=== PATIENT | female | born 1950 | race Caucasian/White ===

== ENCOUNTER 2021-06-17 17:41 | Inpatient (IN) | payer MEDICARE, OTHER ==
--- NOTE | 2021-06-17 19:23 | ED ---
SOB HPI - General Chief Complaint: Shortness of Breath Stated Complaint: Respiratory distress Time Seen by Provider: 06/17/21 19:22 Source: patient, RN notes reviewed Mode of arrival: ambulatory Limitations: no limitations - History of Present Illness Initial Comments: Patient presents with cough, congestion, shortness of breath for one week.Shaylee moore has a history of COPD and has been treated as an outpatient for COPD exacerbation with corticosteroids. Patient did not get better after a course of prednisone. Patient's also been on Augmentin for 8 days. Patient ended up going to her regular physician and had a intramuscular injection of cortical steroids as well. Patient presents today with persistent shortness of breath. COVID-19 testing and influenza testing was done in triage and is actually negative. The patient has not vaccinated against COVID-19. No headache, no fever or chills, no changes in vision or hearing, no sore throat or difficulty with speech, no neck pain, no chest pain, no abdominal pain, no nausea or vomiting, no changes in urination or bowel movements, no numbness or tingling, no extremity pain, no skin rashes or lesions. Positive for body aches and cough MD Complaint: shortness of breath, cough - Related Data Allergies Allergy/AdvReac Type Severity Reaction Status Date / Time clindamycin Allergy Rash/Hives Verified 06/17/21 19:02 diphenhydramine Allergy Rash/Hives Verified 06/17/21 19:02 [From Benadryl] Iodinated Contrast Media Allergy Rash/Hives Verified 06/17/21 19:02 levofloxacin [From Levaquin] Allergy Rash/Hives Verified 06/17/21 19:02 Review of Systems ROS Statement: Those systems with pertinent positive or pertinent negative responses have been documented in the HPI. ROS Other: All systems not noted in ROS Statement are negative. Past Medical History Past Medical History: COPD History of Any Multi-Drug Resistant Organisms: None Reported Past Surgical History: No Surgical Hx Reported Past Psychological History: No Psychological Hx Reported Smoking Status: Current every day smoker Past Alcohol Use History: None Reported Past Drug Use History: None Reported General Exam - General Exam Comments Initial Comments: 71-year-old female in moderate distress. Limitations: no limitations General appearance: alert, in no apparent distress Head exam: Present: atraumatic, normocephalic, normal inspection Eye exam: Present: normal appearance, PERRL, EOMI. Absent: scleral icterus, conjunctival injection, periorbital swelling ENT exam: Present: normal exam, mucous membranes moist Neck exam: Present: normal inspection. Absent: tenderness, meningismus, lymphadenopathy Respiratory exam: Present: wheezes, accessory muscle use, other (Mild increased work of breathing with pursed lip breathing and increases Essary muscle use). Absent: normal lung sounds bilaterally, respiratory distress, rales, rhonchi, stridor Cardiovascular Exam: Present: regular rate, normal rhythm, normal heart sounds. Absent: systolic murmur, diastolic murmur, rubs, gallop, clicks GI/Abdominal exam: Present: soft, normal bowel sounds. Absent: distended, tenderness, guarding, rebound, rigid Extremities exam: Present: normal inspection, full ROM, normal capillary refill. Absent: tenderness, pedal edema, joint swelling, calf tenderness Back exam: Present: normal inspection Neurological exam: Present: alert, oriented X3, CN II-XII intact Psychiatric exam: Present: normal affect, normal mood Skin exam: Present: warm, dry, intact, normal color. Absent: rash Course Vital Signs 06/17/21 18:55 Temperature 97.2 F L Pulse Rate 79 Respiratory 19 Rate Blood Pressure 138/85 O2 Sat by Pulse 94 L Oximetry Medical Decision Making - Medical Decision Making Patient presents with outpatient failure for COPD exacerbation. Note that the patient has been on corticosteroids and has an elevated white count which is suspected. Patient has expiratory wheezing on physical examination. DuoNeb is ordered. Patient will need to be admitted for outpatient failure, COPD exacerbation 19 influenza testing is negative. The case was discussed in detail with ED attending physician. Presentation, findings, treatment plan discussed in detail. Patient will be admitted to Dr. Bautista for COPD exacerbation/outpatient failure. Consultation for pulmonary medicine will be placed. Case discussed in detail with the internal medicine physician, Dr. Bautista - Lab Data Result diagrams: 06/17/21 20:26 06/17/21 20: Lab Results 06/17/21 06/17/21 06/17/21 Range/Units 19:09 20:26 20:26 WBC 13.5 H (3.8-10.6) k/uL RBC 5.05 (3.80-5.40) m/uL Hgb 15.7 (11.4-16.0) gm/dL Hct 47.2 H (34.0-46.0) % MCV 93.4 (80.0-100.0) fL MCH 31.1 (25.0-35.0) pg MCHC 33.2 (31.0-37.0) g/dL RDW 13.5 (11.5-15.5) % Plt Count 289 (150-450) k/uL MPV 8.3 Neutrophils % 61 % Lymphocytes % 29 % Monocytes % 6 % Eosinophils % 2 % Basophils % 0 % Neutrophils # 8.2 H (1.3-7.7) k/uL Lymphocytes # 4.0 (1.0-4.8) k/uL Monocytes # 0.8 (0-1.0) k/uL Eosinophils # 0.3 (0-0.7) k/uL Basophils # 0.1 (0-0.2) k/uL Sodium 134 L (137-145) mmol/L Potassium 4.3 (3.5-5.1) mmol/L Chloride 98 (98-107) mmol/L Carbon Dioxide 27 (22-30) mmol/L Anion Gap 9 mmol/L BUN 19 H (7-17) mg/dL Creatinine 0.66 (0.52-1.04) mg/dL Est GFR (CKD-EPI)AfAm >90 (>60 ml/min/1.73 sqM) Est GFR (CKD-EPI)NonAf >90 (>60 ml/min/1.73 sqM) Glucose 114 H (74-99) mg/dL Calcium 10.5 H (8.4-10.2) mg/dL Magnesium 2.2 (1.6-2.3) mg/dL Total Bilirubin 0.6 (0.2-1.3) mg/dL AST 21 (14-36) U/L ALT 27 (4-34) U/L Alkaline Phosphatase 97 (38-126) U/L Troponin I (0.000-0.034) ng/mL NT-Pro-B Natriuret Pep pg/mL Total Protein 6.3 (6.3-8.2) g/dL Albumin 3.8 (3.5-5.0) g/dL Coronavirus (PCR) Not Detected (Not Detectd) Influenza Type A RNA (Not Detectd) Influenza Type B (PCR) (Not Detectd) 06/17/21 06/17/21 06/17/21 Range/Units 20:26 20:26 20:28 WBC (3.8-10.6) k/uL RBC (3.80-5.40) m/uL Hgb (11.4-16.0) gm/dL Hct (34.0-46.0) % MCV (80.0-100.0) fL MCH (25.0-35.0) pg MCHC (31.0-37.0) g/dL RDW (11.5-15.5) % Plt Count (150-450) k/uL MPV Neutrophils % % Lymphocytes % % Monocytes % % Eosinophils % % Basophils % % Neutrophils # (1.3-7.7) k/uL Lymphocytes # (1.0-4.8) k/uL Monocytes # (0-1.0) k/uL Eosinophils # (0-0.7) k/uL Basophils # (0-0.2) k/uL Sodium (137-145) mmol/L Potassium (3.5-5.1) mmol/L Chloride (98-107) mmol/L Carbon Dioxide (22-30) mmol/L Anion Gap mmol/L BUN (7-17) mg/dL Creatinine (0.52-1.04) mg/dL Est GFR (CKD-EPI)AfAm (>60 ml/min/1.73 sqM) Est GFR (CKD-EPI)NonAf (>60 ml/min/1.73 sqM) Glucose (74-99) mg/dL Calcium (8.4-10.2) mg/dL Magnesium (1.6-2.3) mg/dL Total Bilirubin (0.2-1.3) mg/dL AST (14-36) U/L ALT (4-34) U/L Alkaline Phosphatase (38-126) U/L Troponin I <0.012 (0.000-0.034) ng/mL NT-Pro-B Natriuret Pep 101 pg/mL Total Protein (6.3-8.2) g/dL Albumin (3.5-5.0) g/dL Coronavirus (PCR) (Not Detectd) Influenza Type A RNA Not Detected (Not Detectd) Influenza Type B (PCR) Not Detected (Not Detectd) - EKG Data EKG Comments: EKG reveals normal sinus rhythm with a rate of 66. Left axis deviation. Pulmonary disease pattern. Are his R in lead V1 suggests right ventricular conduction delay. Poor R-wave progression noted. Intervals are normal. No comparison study. Reviewed by the ED attending physician. Disposition Clinical Impression: Edema of larynx, COPD with acute exacerbation, Asthma with acute exacerbation, Cigarette smoker Disposition: ADMITTED IP TO THIS HOSP Referrals: Benigno Cosby MD [Primary Care Provider] - 1-2 days
[2021-06-17 20:47] LABS: ALT 27 U/L (4-34); AST 21 U/L (14-36); African American GFR (CKD) >90 (>60 ml/min/1.73 sqM); Albumin 3.8 g/dL (3.5-5.0); Alkaline Phosphatase 97 U/L (38-126); Anion Gap 9 mmol/L; Blood Urea Nitrogen 19 mg/dL (7-17); Calcium 10.5 mg/dL (8.4-10.2); Carbon Dioxide 27 mmol/L (22-30); Chloride 98 mmol/L (98-107); Glucose 114 mg/dL (74-99); Magnesium 2.2 mg/dL (1.6-2.3); Non-African American GFR(CKD) >90 (>60 ml/min/1.73 sqM); Sodium 134 mmol/L (137-145); Total Bilirubin 0.6 mg/dL (0.2-1.3); Total Protein 6.3 g/dL (6.3-8.2)
[2021-06-17 20:56] LABS: Potassium 4.3 mmol/L (3.5-5.1)
[2021-06-17 21:03] LABS: Basophils # (A) 0.1 k/uL (0-0.2); Basophils % (A) 0 %; Eosinophils # (A) 0.3 k/uL (0-0.7); Eosinophils % (A) 2 %; HCT 47.2 % (34.0-46.0); HGB 15.7 gm/dL (11.4-16.0); Lymphocytes % (A) 29 %; MCH 31.1 pg (25.0-35.0); MCHC 33.2 g/dL (31.0-37.0); MCV 93.4 fL (80.0-100.0); Mean Platelet Volume 8.3; Monocytes # (A) 0.8 k/uL (0-1.0); Monocytes % (A) 6 %; Neutrophils # (A) 8.2 k/uL (1.3-7.7); Neutrophils % (A) 61 %; Platelet Count 289 k/uL (150-450); RBC 5.05 m/uL (3.80-5.40); RDW 13.5 % (11.5-15.5); WBC 13.5 k/uL (3.8-10.6)
[2021-06-17] MEDS ORDERED: IPRATROPIUM-ALBUTEROL 3 ML NEB INHALATION STA (21:24)
--- NOTE | 2021-06-17 21:39 | XR ---
EXAMINATION TYPE: XR chest 1V portable DATE OF EXAM: 06/17/2021 COMPARISON: NONE HISTORY: 71 years Female. STUDY INDICATION GIVEN: dyspnea . TECHNIQUE: AP chest radiograph IMPRESSION: Hyperinflated lungs with upper lobe predominant lucencies likely on the basis of COPD/emphysema. Few nodular-like densities measuring up to 6 mm in the bilateral perihilar region may be reflective o f calcified hilar lymph nodes. Minimal bibasilar linear opacities likely reflective of atelectasis. No definite focal airspace disea se, pneumothorax or effusion. The cardiac mediastinal silhouette is within normal limit. Degenerative changes and mild S-shaped scoliosis are seen in the spine. No acute fracture or dislocat ion. Atherosclerotic calcifications project in the intrathoracic aorta.
[2021-06-17] MEDS ORDERED: INSULIN ASPART (NovoLOG) 100 UNIT/ML VIAL SQ PRN (21:53)
[2021-06-17] MEDS: AZITHROMYCIN 500 MG TAB PO SCH (23:10)
[2021-06-17] MEDS: ENOXAPARIN 40 MG/0.4 ML SYRINGE SQ SCH (23:10)
[2021-06-18] MEDS: methylPREDNISolone SOD SUCCI 125 MG/2 ML VIAL IV SCH ×4 (00:14→17:48)
[2021-06-18 07:38] LABS: Glucose,Whole Blood 137 mg/dL (75-99)
[2021-06-18 07:54] LABS: Basophils % (A) 0 %; Eosinophils % (A) 0 %; HCT 49.1 % (34.0-46.0); HGB 15.9 gm/dL (11.4-16.0); Lymphocytes # (A) 1.6 k/uL (1.0-4.8); Lymphocytes % (A) 14 %; MCH 30.7 pg (25.0-35.0); MCHC 32.3 g/dL (31.0-37.0); MCV 94.8 fL (80.0-100.0); Mean Platelet Volume 7.9; Monocytes # (A) 0.1 k/uL (0-1.0); Monocytes % (A) 1 %; Neutrophils # (A) 9.5 k/uL (1.3-7.7); Neutrophils % (A) 84 %; Platelet Count 339 k/uL (150-450); RBC 5.18 m/uL (3.80-5.40); RDW 13.4 % (11.5-15.5); WBC 11.3 k/uL (3.8-10.6)
[2021-06-18] MEDS ORDERED: FLUTICASONE 110 MCG INHALER INHALATION SCH (08:00)
[2021-06-18] MEDS ORDERED: ALBUTEROL HFA INHALER INHALATION SCH (08:00)
[2021-06-18] MEDS ORDERED: TIOTROPIUM 2.5 MCG INHALER INHALATION SCH (08:00)
[2021-06-18 08:18] LABS: African American GFR (CKD) >90 (>60 ml/min/1.73 sqM); Anion Gap 8 mmol/L; Blood Urea Nitrogen 18 mg/dL (7-17); Calcium 9.9 mg/dL (8.4-10.2); Carbon Dioxide 27 mmol/L (22-30); Chloride 98 mmol/L (98-107); Glucose 141 mg/dL (74-99); Non-African American GFR(CKD) >90 (>60 ml/min/1.73 sqM); Potassium 4.7 mmol/L (3.5-5.1); Sodium 133 mmol/L (137-145)
[2021-06-18] MEDS: AZITHROMYCIN 500 MG TAB PO SCH (09:05)
[2021-06-18] MEDS: guaiFENesin 600 MG TABLET.ER PO SCH ×2 (09:05→20:00)
--- NOTE | 2021-06-18 11:28 | P.CNPUL ---
History of Present Illness Consult date: 06/18/21 History of present illness: 89-year-old female patient, who has been followed up in our office regarding her COPD. The patient takes Symbicort as maintenance and the patient has been taken albuterol nebulizer [id number] on an as needed basis. The patient has not been on oxygen at home. She quit smoking approximately 10 days ago. Prior to that, the patient was smoking around half pack of cigarettes a day and she has smoked cigarettes for many years. No previous hospitalization for COPD exacerbations. Her symptoms started approximately 10 days ago. She initially developed symptoms of URI and subsequently she had increased cough and congestion and chest tightness and wheezing. She was seen by her primary care physician and have an urgent care. She was given prednisone. She was given Augmentin. She was also given a Depo-Medrol shot. She continued to be symptomatic and she continued to have excessive cough and congestion and for that reason she ended up coming into the emergency department she was hospitalized for an acute COPD exacerbation. COVID 19 testing is been negative. Note that the patient has never been advised by her primary care physician not to take COVID 19 vaccination. The patient has no angina. No palpitation. No swelling lower extremity is. No altered mentation. She is tolerating her diet. She is currently on oxygen at 3 L per minute nasal cannula. Review of Systems Constitutional: Reports fatigue, Reports weakness Eyes: denies as per HPI, denies blurred vision, denies bulging eye, denies decreased vision, denies diplopia, denies discharge, denies dry eye, denies irritation, denies itching, denies pain, denies photophobia, denies loss of pe ripheral vision, denies loss of vision, denies tunnel vision/blind spots Ears: deny: decreased hearing, ear discharge, earache, tinnitus Ears, nose, mouth and throat: Reports as per HPI Breasts: absent: as per HPI, change in shape, gynecomastia, masses, nipple discharge, pain, skin changes, swelling Cardiovascular: Reports decreased exercise tolerance, Reports dyspnea on exertion Respiratory: Reports congestion, Reports cough, Reports cough with sputum, Reports dyspnea, Reports wheezing Gastrointestinal: Reports as per HPI Genitourinary: Reports as per HPI Menstruation: Reports as per HPI Musculoskeletal: Reports as per HPI Musculoskeletal: absent: ankle pain, ankle stiffness, ankle swelling, as per HPI, elbow pain, elbow stiffness, elbow swelling, foot pain, foot stiffness, foot swelling, hand pain, hand stiffness, hand swelling, hip pain, hip stiffness, hip swelling, knee pain, knee stiffness, knee swelling, shoulder pain, shoulder stiffness, shoulder swelling, wrist pain, wrist stiffness, wrist swelling Integumentary: Reports as per HPI Neurological: Reports as per HPI Psychiatric: Reports as per HPI Endocrine: Reports as per HPI, Reports fatigue Hematologic/Lymphatic: Reports as per HPI Allergic/Immunologic: Reports as per HPI Past Medical History Past Medical History: COPD History of Any Multi-Drug Resistant Organisms: None Reported Past Surgical History: No Surgical Hx Reported Past Anesthesia/Blood Transfusion Reactions: No Reported Reaction Past Psychological History: No Psychological Hx Reported Smoking Status: Current every day smoker Past Alcohol Use History: None Reported Past Drug Use History: None Reported Medications and Allergies Home Medications Medication Instructions Recorded Confirmed Type Albuterol Inhaler [Ventolin Hfa 2 puff INHALATION RT-Q6H PRN 06/17/21 06/17/21 History Inhaler] Albuterol Nebulized [Ventolin 2.5 mg INHALATION RT-QID PRN 06/17/21 06/17/21 History Nebulized] Amoxicillin/Potassium Clav 1 tab PO BID 06/17/21 06/17/21 History [Augmentin 875-125 Tablet] Budesonide/Formoterol Fumarate 2 puff INHALATION RT-BID 06/17/21 06/17/21 History [Symbicort 160-4.5 Mcg Inhaler] Cholecalciferol [Vitamin D3 (25 25 mcg PO DAILY 06/17/21 06/17/21 History Mcg = 1000 Iu)] Ipratropium Nebulized [Atrovent 0.5 mg INHALATION RT-QID PRN 06/17/21 06/17/21 History Nebulized 0.2 MG/ML] Montelukast [Singulair] 10 mg PO DAILY 06/17/21 06/17/21 History predniSONE [Deltasone] See Taper PO DIRECTED 06/17/21 06/17/21 History Allergies Allergy/AdvReac Type Severity Reaction Status Date / Time clindamycin Allergy Rash/Hives Verified 06/17/21 22:15 diphenhydramine Allergy Rash/Hives Verified 06/17/21 22:15 [From Benadryl] Iodinated Contrast Media Allergy Rash/Hives Verified 06/17/21 22:15 levofloxacin [From Levaquin] Allergy Rash/Hives Verified 06/17/21 22:15 Physical Exam Vitals: Vital Signs Temp Pulse Pulse Resp BP BP Pulse Ox 06/18/21 08:00 16 06/18/21 04:40 97.9 F 74 20 113/69 95 06/18/21 03:56 72 16 116/87 98 06/18/21 00:43 71 20 143/72 94 L 06/17/21 23:27 71 06/17/21 23:22 68 06/17/21 23:00 22 06/17/21 18:55 97.2 F L 79 19 138/85 94 L Intake and Output 06/17/21 06/18/21 06/18/21 22:59 06:59 14:59 Other: # Voids 1 Weight 48.988 kg 48.988 kg General appearance: alert, in no apparent distress Head exam: Present: atraumatic, normocephalic, normal inspection Eye exam: Present: normal appearance, PERRL, EOMI. Absent: scleral icterus, conjunctival injection, periorbital swelling ENT exam: Present: normal exam, mucous membranes moist Neck exam: Present: normal inspection. Absent: tenderness, meningismus, lymphadenopathy Respiratory exam: Present: wheezes, accessory muscle use, other (Mild increased work of breathing with pursed lip breathing and increases Essary muscle use). Absent: normal lung sounds bilaterally, respiratory distress, rales, rhonchi, stridor Cardiovascular Exam: Present: regular rate, normal rhythm, normal heart sounds. Absent: systolic murmur, diastolic murmur, rubs, gallop, clicks GI/Abdominal exam: Present: soft, normal bowel sounds. Absent: distended, te nderness, guarding, rebound, rigid Extremities exam: Present: normal inspection, full ROM, normal capillary refill. Absent: tenderness, pedal edema, joint swelling, calf tenderness Back exam: Present: normal inspection Neurological exam: Present: alert, oriented X3, CN II-XII intact Psychiatric exam: Present: normal affect, normal mood Skin exam: Present: warm, dry, intact, normal color. Absent: rash Results - Laboratory Findings CBC and BMP: 06/18/21 07:25 06/18/21 07:25 Abnormal lab findings: Abnormal Labs 06/17/21 06/17/21 06/18/21 20:26 20:26 07:25 WBC 13.5 H 11.3 H Hct 47.2 H 49.1 H Neutrophils # 8.2 H 9.5 H Sodium 134 L BUN 19 H Glucose 114 H POC Glucose (mg/dL) Calcium 10.5 H 06/18/21 06/18/21 07:25 07:36 WBC Hct Neutrophils # Sodium 133 L BUN 18 H Glucose 141 H POC Glucose (mg/dL) 137 H Calcium - Diagnostic Findings Chest x-ray: image reviewed Assessment and Plan Plan: 1 Acute COPD exacerbation symptoms started approximately 10 days ago and the patient has failed outpatient treatment. She is currently hospitalized for an acute COPD exacerbation and shortness of breath. Chest x-ray is free of any acute pulmonary infiltration. There is hyperinflation related to COPD. The p atient also has been tested negative for COVID 19. She is not vaccinated for COVID 19 2 shortness of breath secondary to above 3 acute hypoxic respiratory failure secondary to above. Her obesity Plan Supplement the patient on oxygen 2 L per minute nasal cannula. Cover The patient with DuoNeb nebulized treatments around the clock 4 times a day Cover The patient with a combination of Perforomist and Pulmicort neb last 2 minutes twice a day IV Solu-Medrol 60 mg every 6 hours Sputum Gram stain and culture Antibiotic coverage with Rocephin and Zithromax smoking cessation counseling was done will continue to follow.
[2021-06-18] MEDS: IPRATROPIUM-ALBUTEROL 3 ML NEB INHALATION SCH ×3 (11:29→21:24)
[2021-06-18 12:07] LABS: Glucose,Whole Blood 91 mg/dL (75-99)
[2021-06-18] MEDS: CHOLECALCIFEROL 25 MCG (1000 IU) TABLET PO SCH (12:24)
[2021-06-18] MEDS: MONTELUKAST 10 MG TAB PO SCH (12:24)
[2021-06-18 13:03] VITALS: BMI 16.4
--- NOTE | 2021-06-18 16:19 | P.HPIM ---
History of Present Illness H&P Date: 06/18/21 Chief Complaint: Short of breath This is a pleasant 71-year-old patient who follows with Dr. Cosby. Patient is long-standing smoker. About half a pack a day. Over 50 years. She noticed around [place] that is bleeding slightly getting worse. After the first of the year her symptoms became worse. She predominantly became more and more short of breath. Wheezing. Also developed a cough. Sometimes yellow sputum sometimes clear sputum. No fever no chills. Decreased appetite and rundown. Finding decided to come in. Patient does have inhalers at home. Review of systems: GEN.: Decreased appetite, tired EYES: None HEENT: None NECK: None RESPIRATORY: As above CARDIOVASCULAR: None GASTROINTESTINAL: GERD GENITOURINARY: None MUSCULOSKELETAL: None LYMPHATICS: None HEMATOLOGICAL: None PSYCHIATRY: None NEUROLOGICAL: None Past medical history to include: COPD, GERD Social history: Lives alone. Has averaged about half a pack a day for over 50 years. No alcoh ol. Family history: Reviewed, noncontributory to presentation Physical examination: VITAL SIGNS: 97.2, 79, 19, 1:30/85, 94% on room air of 1 presentation GENERAL: BMI 16.4, indicating bed, awake, tired. EYES: Pupils equal. Conjunctiva normal. HEENT: External appearance of nose and ears normal, oral cavity grossly normal. NECK: JVD not raised; masses not palpable. HEART: First and second heart sounds are normal; no edema. LUNGS: Respiratory rate increased; decreased breath sound, prolonged expiration. ABDOMEN: Soft, nontender, liver spleen not palpable, no masses palpable. PSYCH: Alert and oriented x3; mood and affect normal. MUSCULOSKELETAL:No Clubbing/cyanosis;muscles-grossly intact NEUROLOGICAL: Cranial nerves grossly intact; no facial asymmetry, power and sensation grossly intact. LYMPHATICS: No lymph nodes palpable in the axilla and neck INVESTIGATIONS, reviewed in the clinical context: White count 11.3 hemoglobin 15.9 platelets 339 sodium 133 potassium 4.7 BUN 18 creatinine 0.65 Troponin I less than 0.012 proBNP 101 albumin 3.8 Coronavirus/influenza type A/influenza type B: Not detected EKG tracing personally reviewed by me-normal sinus rhythm. P pulmonale. Rate 66 Chest x-ray film personally reviewed by me-hyperinflated. Tubular heart. Flat diaphragms. No obvious infiltrate. Prominent pulmonary artery Assessment and plan: -Acute severe COPD exacerbation in a current smoker Nebulized Pulmicort, nebulized Perforomist, DuoNeb 4 times a day, IV Solu-Medrol -Moderate protein calorie malnutrition. BMI 16.4 Ensure supplement. Consult dietitian -Chronic nicotine dependence, cigarette smoker Nicotine patch 14 -Mild hyponatremia from decreased oral intake Encourage oral intake -GERD Pepcid 20 mg twice a day -Acute bronchitis IV ceftriaxone/Zithromax. -Suspect underlying secondary pulmonary hypertension 2-D echocardiogram DuoNeb, nebulized Perforomist, Pulmicort, antibiotics. Pepcid. Subcu Lovenox. Nicotine patch. Care was discussed with the patient. Questions answered. Dietitian consult. Ensure. Smoke cessation counseling: This was done with the patient. Nicotine patch is being given. More than 3 minutes was spent for this Past Medical History Past Medical History: COPD History of Any Multi-Drug Resistant Organisms: None Reported Past Surgical History: No Surgical Hx Reported Past Anesthesia/Blood Transfusion Reactions: No Reported Reaction Past Psychological History: No Psychological Hx Reported Smoking Status: Current every day smoker Past Alcohol Use History: None Reported Past Drug Use History: None Reported Medications and Allergies Home Medications Medication Instructions Recorded Confirmed Type Albuterol Inhaler [Ventolin Hfa 2 puff INHALATION RT-Q6H PRN 06/17/21 06/17/21 History Inhaler] Albuterol Nebulized [Ventolin 2.5 mg INHALATION RT-QID PRN 06/17/21 06/17/21 History Nebulized] Amoxicillin/Potassium Clav 1 tab PO BID 06/17/21 06/17/21 History [Augmentin 875-125 Tablet] Budesonide/Formoterol Fumarate 2 puff INHALATION RT-BID 06/17/21 06/17/21 History [Symbicort 160-4.5 Mcg Inhaler] Cholecalciferol [Vitamin D3 (25 25 mcg PO DAILY 06/17/21 06/17/21 History Mcg = 1000 Iu)] Ipratropium Nebulized [Atrovent 0.5 mg INHALATION RT-QID PRN 06/17/21 06/17/21 History Nebulized 0.2 MG/ML] Montelukast [Singulair] 10 mg PO DAILY 06/17/21 06/17/21 History predniSONE [Deltasone] See Taper PO DIRECTED 06/17/21 06/17/21 History Allergies Allergy/AdvReac Type Severity Reaction Status Date / Time clindamycin Allergy Rash/Hives Verified 06/17/21 22:15 diphenhydramine Allergy Rash/Hives Verified 06/17/21 22:15 [From Benadryl] Iodinated Contrast Media Allergy Rash/Hives Verified 06/17/21 22:15 levofloxacin [From Levaquin] Allergy Rash/Hives Verified 06/17/21 22:15 Physical Exam Vitals: Vital Signs Temp Pulse Pulse Resp BP BP Pulse Ox 06/18/21 13:56 98.1 F 82 114/68 96 06/18/21 11:38 78 06/18/21 11:32 76 06/18/21 08:00 16 06/18/21 04:40 97.9 F 74 20 113/69 95 06/18/21 03:56 72 16 116/87 98 06/18/21 00:43 71 20 143/72 94 L 06/17/21 23:27 71 06/17/21 23:22 68 06/17/21 23:00 22 06/17/21 18:55 97.2 F L 79 19 138/85 94 L Intake and Output 06/18/21 06/18/21 06/18/21 06:59 14:59 22:59 Other: # Voids 1 Weight 48.988 kg 48.988 kg Results CBC & Chem 7: 06/18/21 07:25 06/18/21 07:25 Labs: Abnormal Lab Results - Last 24 Hours (Table) 06/17/21 06/17/21 06/18/21 Range/Units 20:26 20:26 07:25 WBC 13.5 H 11.3 H (3.8-10.6) k/uL Hct 47.2 H 49.1 H (34.0-46.0) % Neutrophils # 8.2 H 9.5 H (1.3-7.7) k/uL Sodium 134 L (137-145) mmol/L BUN 19 H (7-17) mg/dL Glucose 114 H (74-99) mg/dL POC Glucose (mg/dL) (75-99) mg/dL Calcium 10.5 H (8.4-10.2) mg/dL 06/18/21 06/18/21 Range/Units 07:25 07:36 WBC (3.8-10.6) k/uL Hct (34.0-46.0) % Neutrophils # (1.3-7.7) k/uL Sodium 133 L (137-145) mmol/L BUN 18 H (7-17) mg/dL Glucose 141 H (74-99) mg/dL POC Glucose (mg/dL) 137 H (75-99) mg/dL Calcium (8.4-10.2) mg/dL Thrombosis Risk Factor Assmnt - Choose All That Apply Any of the Below Risk Factors Present?: Yes Each Factor Represents 1 point: Abnormal pulmonary function (COPD) Other Risk Factors: Yes Each Risk Factor Represents 2 Points: Age 61-74 years Other congenital or acquired thrombophilia - If yes, enter type in comment: No Thrombosis Risk Factor Assessment Total Risk Factor Score: 3 Thrombosis Risk Factor Assessment Level: Moderate Risk
[2021-06-18 16:39] LABS: Glucose,Whole Blood 135 mg/dL (75-99)
[2021-06-18] MEDS: NICOTINE 14MG/24HR PATCH TRANSDERM SCH (17:45)
[2021-06-18] MEDS: ENOXAPARIN 40 MG/0.4 ML SYRINGE SQ SCH (20:00)
[2021-06-18] MEDS: FAMOTIDINE 20 MG TAB PO SCH (20:00)
[2021-06-18] MEDS: BUDESONIDE 1 MG/2 ML NEBU INHALATION SCH (21:24)
[2021-06-18] MEDS: FORMOTEROL FUMARATE 20 MCG/2 ML NEBU INHALATION SCH (21:24)
[2021-06-19] MEDS: methylPREDNISolone SOD SUCCI 125 MG/2 ML VIAL IV SCH ×4 (00:08→17:19)
[2021-06-19 07:46] LABS: Glucose,Whole Blood 127 mg/dL (75-99)
[2021-06-19] MEDS: AZITHROMYCIN 500 MG TAB PO SCH (08:29)
[2021-06-19] MEDS: MONTELUKAST 10 MG TAB PO SCH (08:29)
[2021-06-19] MEDS: CHOLECALCIFEROL 25 MCG (1000 IU) TABLET PO SCH (08:29)
[2021-06-19] MEDS: NICOTINE 14MG/24HR PATCH TRANSDERM SCH (08:29)
[2021-06-19] MEDS: guaiFENesin 600 MG TABLET.ER PO SCH ×2 (08:30→21:38)
[2021-06-19] MEDS: FAMOTIDINE 20 MG TAB PO SCH ×2 (08:30→21:38)
[2021-06-19] MEDS: BUDESONIDE 1 MG/2 ML NEBU INHALATION SCH ×2 (09:27→21:16)
[2021-06-19] MEDS: IPRATROPIUM-ALBUTEROL 3 ML NEB INHALATION SCH ×4 (09:27→21:16)
[2021-06-19] MEDS: FORMOTEROL FUMARATE 20 MCG/2 ML NEBU INHALATION SCH ×2 (09:27→21:16)
--- NOTE | 2021-06-19 10:31 | ECHOF ---
Referral Reason:Secondary pulmonary hypertension MEASUREMENTS -------- HEIGHT: 172.7 cm WEIGHT: 49.0 kg BP: RVIDd: 2.2 cm (< 3.3) IVSd: 1.1 cm (0.6 - 1.1) LVIDd: 3.3 cm (3.9 - 5.3) LVPWd: 1.0 cm (0.6 - 1.1) IVSs: 1.5 cm LVIDs: 1.8 cm LVPWs: 1.1 cm LA Diam: 2.0 cm (2.7 - 3.8) Ao Diam: 2.9 cm (2.0 - 3.7) AV Cusp: 2.0 cm (1.5 - 2.6) MV EXCURSION: 15.184 mm (> 18.000) MV EF SLOPE: 41 mm/s (70 - 150) EPSS: 0.4 cm MV E Jose: 0.66 m/s MV DecT: 229 ms MV A Jose: 0.60 m/s MV E/A Ratio: 1.10 RAP: 5.00 mmHg RVSP: 26.36 mmHg FINDINGS -------- Sinus rhythm. This was a technically adequate study. The left ventricular size is normal. Left ventricular wall thickness is normal. Overall left vent ricular systolic function is normal with, an EF between 65 - 70 %. The right ventricle is normal in size. The left atrium is normal in size. The right atrium is normal in size. Interatrial and interventricular septum intact. The aortic valve is trileaflet, and appears structurally normal. No aortic stenosis or regurgitation. The mitral valve is normal. Mild tricuspid regurgitation present. Right ventricular systolic pressure is normal at < 35 mmHg. The pulmonic valve is normal. The aortic root size is normal. Normal inferior vena cava with normal inspiratory collapse consistent with estimated right atrial pre ssure of 5 mmHg. There is no pericardial effusion. CONCLUSIONS -------- 1. The left ventricular size is normal. 2. Left ventricular wall thickness is normal. 3. Overall left ventricular systolic function is normal with, an EF between 65 - 70 %. 4. Mild tricuspid regurgitation present. 5. There is no pericardial effusion. BRIM SHAPER: Zuleyma Ken RD
[2021-06-19 11:42] LABS: Glucose,Whole Blood 101 mg/dL (75-99)
--- NOTE | 2021-06-19 14:10 | P.PN ---
Subjective Progress Note Date: 06/19/21 71-year-old female patient, who has been followed up in our office regarding her COPD. The patient takes Symbicort as maintenance and the patient has been taken albuterol nebulizer [id number] on an as needed basis. The patient has not been on oxygen at home. She quit smoking approximately 10 days ago. Prior to that, the patient was smoking around half pack of cigarettes a day and she has smoked cigarettes for many years. No previous hospitalization for COPD exacerbations. Her symptoms started approximately 10 days ago. She initially developed symptoms of URI and subsequently she had increased cough and congestion and chest tightness and wheezing. She was seen by her primary care physician and have an urgent care. She was given prednisone. She was given Augmentin. She was also given a Depo-Medrol shot. She continued to be symptomatic and she continued to have excessive cough and congestion and for that reason she ended up coming into the emergency department she was hospital ized for an acute COPD exacerbation. COVID 19 testing is been negative. Note that the patient has never been advised by her primary care physician not to take COVID 19 vaccination. The patient has no angina. No palpitation. No swelling lower extremity is. No altered mentation. She is tolerating her diet. She is currently on oxygen at 3 L per minute nasal cannula. The patient is seen today 06/19/2021 in follow-up on the regular medical floor. She is currently sitting up in bed. Awake and alert in no acute distress. She is breathing a bit easier today compared to yesterday. Not quite back to her baseline. Still dyspneic with conversation. Still dyspneic with exertion. He is maintaining good O2 saturations in the mid 90s on 2 L/m per nasal cannula. She's afebrile. Hemodynamically stable. Echocardiogram revealed preserved left ventricular systolic function with ejection fraction 65-70%. Mild tricuspid regurgitation. Glucose 101. She is continued on Pulmicort and Perforomist inhalations, DuoNeb inhalations, Mucinex, IV Solu-Medrol, Singulair. Antibiotics in the form of ceftriaxone and azithromycin. NicoDerm patch is in place. Objective - Vital Signs Vital signs: Vital Signs Temp 97.9 F 06/19/21 12:16 Pulse 88 06/19/21 12:41 Resp 17 06/19/21 12:16 BP 121/67 06/19/21 12:16 Pulse Ox 97 06/19/21 12:16 Intake & Output 06/18/21 06/19/21 06/19/21 18:59 06:59 18:59 Intake Total 800 Balance 800 Weight 48.988 kg Intake: Intake, IV Titration 50 Amount cefTRIAXone 1 gm In 50 Sodium Chloride 0.9% 50 ml @ 100 mls/hr IVPB Q24HR [facility] Rx#:[id number] Oral 750 Other: # Voids 3 - Exam GENERAL EXAM: Alert, very pleasant 71-year-old female patient, on 2 L nasal erich jeb, comfortable in no apparent distress. HEAD: Normocephalic. EYES: Normal reaction of pupils, equal size. NOSE: Clear with pink turbinates. THROAT: No erythema or exudates. NECK: No masses, no JVD. CHEST: No chest wall deformity. LUNGS: Equal air entry with end expiratory wheeze, diminished. CVS: S1 and S2 normal with no audible murmur, regular rhythm. ABDOMEN: No hepatosplenomegaly, normal bowel sounds, no guarding or rigidity. SPINE: No scoliosis or deformity SKIN: No rashes CENTRAL NERVOUS SYSTEM: No focal deficits, tone is normal in all 4 extremities. EXTREMITIES: There is no peripheral edema. No clubbing, no cyanosis. Peripheral pulses are intact. - Labs CBC & Chem 7: 06/18/21 07:25 06/18/21 07:25 Labs: Abnormal Lab Results - Last 24 Hours (Table) 06/18/21 06/19/21 06/19/21 Range/Units 16:37 07:35 11:41 POC Glucose (mg/dL) 135 H 127 H 101 H (75-99) mg/dL Assessment and Plan Assessment: 1 Acute COPD exacerbation symptoms started approximately 10 days ago and the patient has failed outpatient treatment. She is currently hospitalized for an acute COPD exacerbation and shortness of breath. Chest x-ray is free of any acute pulmonary infiltration. There is hyperinflation related to COPD. The patient also has been tested negative for COVID 19. She is not vaccinated for COVID 19 2 shortness of breath secondary to above 3 acute hypoxic respiratory failure secondary to above. Her obesity Plan: The patient is seen and evaluated today Echocardiogram reviewed Doing better from the pulmonary standpoint Continue DuoNeb inhalations, Pulmicort and Perforomist inhalations Continue IV Solu-Medrol Remains on antibiotics, Mucinex Again educated regarding the importance of complete smoking cessation NicoDerm patch in place Probably home in the a.m. We will continue to follow I, the cosigning physician, performed a history & physical examination of the patient. Lungs sounds bilateral end expiratory wheeze, diminished. Maintaining good O2 saturations in the 90s on 2 L/m per nasal cannula. I discussed the assessment and plan of care with my nurse practitioner, Macy Waller. I attest to the above note as dictated by her.
[2021-06-19 17:02] LABS: Glucose,Whole Blood 160 mg/dL (75-99)
[2021-06-19 20:12] LABS: Glucose,Whole Blood 164 mg/dL (75-99)
--- NOTE | 2021-06-19 21:18 | P.PN ---
Progress Note - Text Progress Note Date: 06/19/21 Chief Complaint: Short of breath This is a pleasant 71-year-old patient who follows with Dr. Cosby. Patient is long-standing smoker. About half a pack a day. Over 50 years. She noticed around [place] that is bleeding slightly getting worse. After the first of the year her symptoms became worse. She predominantly became more and more short of breath. Wheezing. Also developed a cough. Sometimes yellow sputum sometimes clear sputum. No fever no chills. Decreased appetite and rundown. Finding decided to come in. Patient does have inhalers at home. Admitted with COPD exacerbation, protein calorie malnutrition. June 19: Breathing a shade better. Remains on IV Solu-Medrol, DuoNeb, nebulizers. Oral intake good. Have the patient sit up in a chair. Increase activity. Review of systems: Was done for constitutional, cardiovascular, GI, pulmonary. r elevant finding as above Active Medications Albuterol/Ipratropium (Ipratropium-Albuterol 3 Ml Neb) 3 ml INHALATION RT-QID [facility] Last Admin: 06/19/21 16:23 Dose: 3 ml Documented by: Azithromycin (Azithromycin 500 Mg Tab) 500 mg PO DAILY [facility] Last Admin: 06/19/21 08:29 Dose: 500 mg Documented by: Budesonide (Budesonide 1 Mg/2 Ml Nebu) 1 mg INHALATION RT-BID [facility] Last Admin: 06/19/21 09:27 Dose: 1 mg Documented by: Cholecalciferol (Cholecalciferol 25 Mcg (1000 Iu) Tablet) 25 mcg PO DAILY [facility] [place] Last Admin: 06/19/21 08:29 Dose: 25 mcg Documented by: Enoxaparin Sodium (Enoxaparin 40 Mg/0.4 Ml Syringe) 40 mg SQ HS [facility] Last Admin: 06/18/21 20:00 Dose: 40 mg Documented by: Famotidine (Famotidine 20 Mg Tab) 20 mg PO BID [facility] [place] [place] Last Admin: 06/19/21 08:30 Dose: 20 mg Documented by: Formoterol Fumarate (Formoterol Fumarate 20 Mcg/2 Ml Nebu) 20 mcg INHALATION RT-BID [facility] [place] Last Admin: 06/19/21 09:27 Dose: 20 mcg Documented by: Guaifenesin (Guaifenesin 600 Mg Tablet.Er) 1,200 mg PO Q12HR [facility] [place] Last Admin: 06/19/21 08:30 Dose: 1,200 mg Documented by: Ceftriaxone Sodium 1 gm/ (Sodium Chloride) 50 mls @ 100 mls/hr IVPB Q24HR [facility] [place] Last Admin: 06/19/21 08:30 Dose: 100 mls/hr Documented by: Insulin Aspart (Insulin Aspart (Novolog) 100 Unit/Ml Vial) 0 unit SQ ACHS PRN; Protocol PRN Reason: Blood Sugar - High Last Admin: 06/19/21 17:20 Dose: 3 unit Documented by: Methylprednisolone Sodium Succinate (Methylprednisolone Sod Succi 125 Mg/2 Ml Vial) 60 mg IV Q6HR [facility] [place] Last Admin: 06/19/21 17:19 Dose: 60 mg Documented by: Montelukast Sodium (Montelukast 10 Mg Tab) 10 mg PO DAILY [facility] [place] Last Admin: 06/19/21 08:29 Dose: 10 mg Documented by: Nicotine (Nicotine 14mg/24hr Patch) 1 patch TRANSDERM DAILY [facility] Last Admin: 06/19/21 08:29 Dose: Not Given Documented by: Past medical history to include: COPD, GERD Social history: Lives alone. Has averaged about half a pack a day for over 50 years. No alcohol. Family history: Reviewed, noncontributory to presentation Physical examination: VITAL SIGNS: 97.9, 90, 17, 1 21 x 67, 97% on 2 L GENERAL: Reclining in bed, awake EYES: Pupils equal. Conjunctiva normal. HEENT: External appearance of nose and ears normal, oral cavity grossly normal. NECK: JVD not raised; masses not palpable. HEART: First and second heart sounds are normal; no edema. LUNGS: Respiratory rate increased; decreased breath sound, ABDOMEN: Soft, nontender, liver spleen not palpable, no masses palpable. PSYCH: Alert and oriented x3; mood and affect normal. MUSCULOSKELETAL:No Clubbing/cyanosis;muscles-grossly intact NEUROLOGICAL: Cranial nerves grossly intact; no facial asymmetry, power and sensation grossly intact. INVESTIGATIONS, reviewed in the clinical context: White count 11.3 hemoglobin 15.9 platelets 339 sodium 133 potassium 4.7 BUN 18 creatinine 0.65 Troponin I less than 0.012 proBNP 101 albumin 3.8 Coronavirus/influenza type A/influenza type B: Not detected EKG tracing personally reviewed by me-normal sinus rhythm. P pulmonale. Rate 66 Chest x-ray film personally reviewed by me-hyperinflated. Tubular heart. Flat diaphragms. No obvious infiltrate. Prominent pulmonary artery Assessment and plan: -Acute severe COPD exacerbation in a current smoker Nebulized Pulmicort, nebulized Perforomist, DuoNeb 4 times a day, IV Solu-Medrol -Moderate protein calorie malnutrition. BMI 16.4 Ensure supplement. Consult dietitian -Chronic nicotine dependence, cigarette smoker Nicotine patch 14 -Mild hyponatremia from decreased oral intake Encourage oral intake -GERD Pepcid 20 mg twice a day -Acute bronchitis IV ceftriaxone/Zithromax. -Suspect underlying secondary pulmonary hypertension 2-D echocardiogram DuoNeb, nebulized Perforomist, Pulmicort, antibiotics. Pepcid. Subcu Lovenox. Nicotine patch. Increase activity. Current diagnosis Solu-Medrol.
[2021-06-19] MEDS: ENOXAPARIN 40 MG/0.4 ML SYRINGE SQ SCH (21:38)
[2021-06-20] MEDS: methylPREDNISolone SOD SUCCI 40 MG/ML 1 ML VIAL IV SCH ×4 (00:35→22:48)
[2021-06-20 07:23] LABS: Glucose,Whole Blood 124 mg/dL (75-99)
[2021-06-20] MEDS: IPRATROPIUM-ALBUTEROL 3 ML NEB INHALATION SCH ×4 (08:25→19:54)
[2021-06-20] MEDS: BUDESONIDE 1 MG/2 ML NEBU INHALATION SCH ×2 (08:25→19:55)
[2021-06-20] MEDS: FORMOTEROL FUMARATE 20 MCG/2 ML NEBU INHALATION SCH ×2 (08:25→19:55)
[2021-06-20] MEDS: NICOTINE 14MG/24HR PATCH TRANSDERM SCH (09:16)
[2021-06-20] MEDS: FAMOTIDINE 20 MG TAB PO SCH ×2 (09:17→22:47)
[2021-06-20] MEDS: CHOLECALCIFEROL 25 MCG (1000 IU) TABLET PO SCH (09:17)
[2021-06-20] MEDS: MONTELUKAST 10 MG TAB PO SCH (09:17)
[2021-06-20] MEDS: AZITHROMYCIN 500 MG TAB PO SCH (09:17)
[2021-06-20] MEDS: guaiFENesin 600 MG TABLET.ER PO SCH ×2 (09:17→22:48)
[2021-06-20 12:02] LABS: Glucose,Whole Blood 83 mg/dL (75-99)
--- NOTE | 2021-06-20 12:06 | P.PN ---
Subjective Progress Note Date: 06/20/21 71-year-old female patient, who has been followed up in our office regarding her COPD. The patient takes Symbicort as maintenance and the patient has been taken albuterol nebulizer [id number] on an as needed basis. The patient has not been on oxygen at home. She quit smoking approximately 10 days ago. Prior to that, the patient was smoking around half pack of cigarettes a day and she has smoked cigarettes for many years. No previous hospitalization for COPD exacerbations. Her symptoms started approximately 10 days ago. She initially developed symptoms of URI and subsequently she had increased cough and congestion and chest tightness and wheezing. She was seen by her primary care physician and have an urgent care. She was given prednisone. She was given Augmentin. She was also given a Depo-Medrol shot. She continued to be symptomatic and she continued to have excessive cough and congestion and for that reason she ended up coming into the emergency department she was hospital ized for an acute COPD exacerbation. COVID 19 testing is been negative. Note that the patient has never been advised by her primary care physician not to take COVID 19 vaccination. The patient has no angina. No palpitation. No swelling lower extremity is. No altered mentation. She is tolerating her diet. She is currently on oxygen at 3 L per minute nasal cannula. The patient is seen today 06/19/2021 in follow-up on the regular medical floor. She is currently sitting up in bed. Awake and alert in no acute distress. She is breathing a bit easier today compared to yesterday. Not quite back to her baseline. Still dyspneic with conversation. Still dyspneic with exertion. He is maintaining good O2 saturations in the mid 90s on 2 L/m per nasal cannula. She's afebrile. Hemodynamically stable. Echocardiogram revealed preserved left ventricular systolic function with ejection fraction 65-70%. Mild tricuspid regurgitation. Glucose 101. She is continued on Pulmicort and Perforomist inhalations, DuoNeb inhalations, Mucinex, IV Solu-Medrol, Singulair. Antibiotics in the form of ceftriaxone and azithromycin. NicoDerm patch is in place. The patient is seen today 06/20/2021 in follow-up on the regular medical floor. She is resting comfortably in bed. Awake and alert in no acute distress. She is maintaining O2 saturation low 90s on room air. She is continued on IV Solu- Medrol, DuoNeb inhalations, Pulmicort and Perforomist inhalations. Antibiotics in the form of ceftriaxone and azithromycin. Lovenox for DVT prophylaxis. She is continued on Singulair. NicoDerm patch in place. Pro-calcitonin less than 0.02 Objective - Vital Signs Vital signs: Vital Signs Temp 98.3 F 06/20/21 07:00 Pulse 92 06/20/21 08:50 Resp 17 06/20/21 07:00 BP 124/65 06/20/21 07:00 Pulse Ox 98 06/20/21 07:00 Intake & Output 06/19/21 06/20/21 06/20/21 18:59 06:59 18:59 Intake Total 800 Balance 800 Intake: Oral 800 Other: # Voids 3 3 - Exam GENERAL EXAM: Alert, very pleasant 71-year-old female patient, on room air, comfortable in no apparent distress. HEAD: Normocephalic. EYES: Normal reaction of pupils, equal size. NOSE: Clear with pink turbinates. THROAT: No erythema or exudates. NECK: No masses, no JVD. CHEST: No chest wall deformity. LUNGS: Equal air entry with end expiratory wheeze, diminished. CVS: S1 and S2 normal with no audible murmur, regular rhythm. ABDOMEN: No hepatosplenomegaly, normal bowel sounds, no guarding or rigidity. SPINE: No scoliosis or deformity SKIN: No rashes CENTRAL NERVOUS SYSTEM: No focal deficits, tone is normal in all 4 extremities. EXTREMITIES: There is no peripheral edema. No clubbing, no cyanosis. Peripheral pulses are intact. - Labs CBC & Chem 7: 06/18/21 07:25 06/18/21 07:25 Labs: Abnormal Lab Results - Last 24 Hours (Table) 06/19/21 06/19/21 06/20/21 Range/Units 17:01 20:11 07:21 POC Glucose (mg/dL) 160 H 164 H 124 H (75-99) mg/dL Procalcitonin (0.02-0.09) ng/mL 06/20/21 Range/Units 08:01 POC Glucose (mg/dL) (75-99) mg/dL Procalcitonin <0.02 L (0.02-0.09) ng/mL Assessment and Plan Assessment: 1 Acute COPD exacerbation symptoms started approximately 10 days ago and the patient has failed outpatient treatment. She is currently hospitalized for an acute COPD exacerbation and shortness of breath. Chest x-ray is free of any acute pulmonary infiltration. There is hyperinflation related to COPD. The pat ient also has been tested negative for COVID 19. She is not vaccinated for COVID 19. 2 shortness of breath secondary to above 3 acute hypoxic respiratory failure secondary to above. Plan: The patient is seen and evaluated today Cleared for discharge from the pulmonary standpoint Procalcitonin normal, no need for continued antibiotics Complete a prednisone taper Continue her home Symbicort and nebulized treatments Again educated regarding the importance of complete smoking cessation NicoDerm patch in place Follow-up in our office in 1-2 weeks' I, the cosigning physician, performed a history & physical examination of the patient. Lungs sounds bilateral end expiratory wheeze, diminished. Maintaining good O2 saturations in the 90s on room air. I discussed the assessment and plan of care with my nurse practitioner, Macy Waller. I attest to the above note as dictated by her.
--- NOTE | 2021-06-20 17:16 | P.PN ---
Progress Note - Text Progress Note Date: 06/20/21 Chief Complaint: Short of breath This is a pleasant 71-year-old patient who follows with Dr. Cosby. Patient is long-standing smoker. About half a pack a day. Over 50 years. She noticed around [place] that is bleeding slightly getting worse. After the first of the year her symptoms became worse. She predominantly became more and more short of breath. Wheezing. Also developed a cough. Sometimes yellow sputum sometimes clear sputum. No fever no chills. Decreased appetite and rundown. Finding decided to come in. Patient does have inhalers at home. Admitted with COPD exacerbation, protein calorie malnutrition. June 19: Breathing a shade better. Remains on IV Solu-Medrol, DuoNeb, nebulizers. Oral intake good. Have the patient sit up in a chair. Increase activity. June 20: Breathing better. Oral intake fair. Patient is moved to different floor. [place] very tired in the process. He requested to stay overnight go home tomorrow. Review of systems: Was done for constitutional, cardiovascular, GI, pulmonary. relevant finding as above Active Medications Albuterol/Ipratropium (Ipratropium-Albuterol 3 Ml Neb) 3 ml INHALATION RT-QID [facility] Last Admin: 06/20/21 17:12 Dose: 3 ml Documented by: Azithromycin (Azithromycin 500 Mg Tab) 500 mg PO DAILY [facility] Last Admin: 06/20/21 09:17 Dose: 500 mg Documented by: Budesonide (Budesonide 1 Mg/2 Ml Nebu) 1 mg INHALATION RT-BID [facility] Last Admin: 06/20/21 08:25 Dose: 1 mg Documented by: Cholecalciferol (Cholecalciferol 25 Mcg (1000 Iu) Tablet) 25 mcg PO DAILY [facility] Last Admin: 06/20/21 09:17 Dose: 25 mcg Documented by: Enoxaparin Sodium (Enoxaparin 40 Mg/0.4 Ml Syringe) 40 mg SQ HS [facility] Last Admin: 06/19/21 21:38 Dose: 40 mg Documented by: Famotidine (Famotidine 20 Mg Tab) 20 mg PO BID [facility] Last Admin: 06/20/21 09:17 Dose: 20 mg Documented by: Formoterol Fumarate (Formoterol Fumarate 20 Mcg/2 Ml Nebu) 20 mcg INHALATION RT-BID [facility] Last Admin: 06/20/21 08:25 Dose: 20 mcg Documented by: Guaifenesin (Guaifenesin 600 Mg Tablet.Er) 1,200 mg PO Q12HR [facility] Last Admin: 06/20/21 09:17 Dose: 1,200 mg Documented by: Ceftriaxone Sodium 1 gm/ (Sodium Chloride) 50 mls @ 100 mls/hr IVPB Q24HR [facility] Last Admin: 06/20/21 09:16 Dose: 100 mls/hr Documented by: Insulin Aspart (Insulin Aspart (Novolog) 100 Unit/Ml Vial) 0 unit SQ ACHS PRN; Protocol PRN Reason: Blood Sugar - High Last Admin: 06/19/21 17:20 Dose: 3 unit Documented by: Methylprednisolone Sodium Succinate (Methylprednisolone Sod Succi 40 Mg/Ml 1 Ml Vial) 40 mg IV Q8HR [facility] Last Admin: 06/20/21 16:36 Dose: 40 mg Documented by: Montelukast Sodium (Montelukast 10 Mg Tab) 10 mg PO DAILY [facility] Last Admin: 06/20/21 09:17 Dose: 10 mg Documented by: Nicotine (Nicotine 14mg/24hr Patch) 1 patch TRANSDERM DAILY [facility] Last Admin: 06/20/21 09:16 Dose: Not Given Documented by: Past medical history to include: COPD, GERD Social history: Lives alone. Has averaged about half a pack a day for over 50 years. No alcohol. Family history: Reviewed, noncontributory to presentation Physical examination: VITAL SIGNS: 98.5, 92, 17, 125-76, 97% on 2 L GENERAL: Up in bed, awake EYES: Pupils equal. Conjunctiva normal. HEENT: External appearance of nose and ears normal, oral cavity grossly normal. NECK: JVD not raised; masses not palpable. HEART: First and second heart sounds are normal; no edema. LUNGS: Respiratory rate increased; decreased breath sound, ABDOMEN: Soft, nontender, liver spleen not palpable, no masses palpable. PSYCH: Alert and oriented x3; mood and affect normal. MUSCULOSKELETAL:No Clubbing/cyanosis;muscles-grossly intact NEUROLOGICAL: Cranial nerves grossly intact; no facial asymmetry, power and sensation grossly intact. INVESTIGATIONS, reviewed in the clinical context: June 20: Procalcitonin less than 0.02 2-D echocardiogram: LV function EF 65/70% White count 11.3 hemoglobin 15.9 platelets 339 sodium 133 potassium 4.7 BUN 18 creatinine 0.65 Troponin I less than 0.012 proBNP 101 albumin 3.8 Coronavirus/influenza type A/influenza type B: Not detected EKG tracing personally reviewed by me-normal sinus rhythm. P pulmonale. Rate 66 Chest x-ray film personally reviewed by me-hyperinflated. Tubular heart. Flat diaphragms. No obvious infiltrate. Prominent pulmonary artery Assessment and plan: -Acute severe COPD exacerbation in a current smoker: Better Nebulized Pulmicort, nebulized Perforomist, DuoNeb 4 times a day, IV Solu-Medrol cutback -Moderate protein calorie malnutrition. BMI 16.4 Ensure supplement. Consult dietitian -Chronic nicotine dependence, cigarette smoker Nicotine patch 14 -Mild hyponatremia from decreased oral intake Encourage oral intake -GERD Pepcid 20 mg twice a day -Acute bronchitis Changed to by mouth Omnicef DuoNeb, nebulized Perforomist, Pulmicort, Pepcid. Subcu Lovenox. Nicotine patch. Increase activity. Decrease Solu-Medrol. Patient requested to stay overnight. Changed to by mouth antibiotic.
[2021-06-20 21:36] LABS: Glucose,Whole Blood 125 mg/dL (75-99)
[2021-06-20] MEDS: INSULIN ASPART (NovoLOG) 100 UNIT/ML VIAL SQ SCH (21:36)
[2021-06-20] MEDS: ENOXAPARIN 40 MG/0.4 ML SYRINGE SQ SCH (22:47)
[2021-06-20] MEDS: CEFDINIR 300 MG CAP PO SCH (22:48)
[2021-06-21 07:10] LABS: Glucose,Whole Blood 109 mg/dL (75-99)
[2021-06-21] MEDS: INSULIN ASPART (NovoLOG) 100 UNIT/ML VIAL SQ SCH (07:20)
[2021-06-21] MEDS: FAMOTIDINE 20 MG TAB PO SCH (07:42)
[2021-06-21] MEDS: CHOLECALCIFEROL 25 MCG (1000 IU) TABLET PO SCH (07:42)
[2021-06-21] MEDS: guaiFENesin 600 MG TABLET.ER PO SCH (07:42)
[2021-06-21] MEDS: CEFDINIR 300 MG CAP PO SCH (07:42)
[2021-06-21] MEDS: MONTELUKAST 10 MG TAB PO SCH (07:42)
[2021-06-21] MEDS: NICOTINE 14MG/24HR PATCH TRANSDERM SCH (08:20)
[2021-06-21] MEDS: AZITHROMYCIN 500 MG TAB PO SCH (08:20)
[2021-06-21] MEDS: methylPREDNISolone SOD SUCCI 40 MG/ML 1 ML VIAL IV SCH (08:20)
[2021-06-21 08:49] VITALS: BP 130/66; RESP 18; TEMP 98.6
[2021-06-21] MEDS: BUDESONIDE 1 MG/2 ML NEBU INHALATION SCH (09:24)
[2021-06-21] MEDS: FORMOTEROL FUMARATE 20 MCG/2 ML NEBU INHALATION SCH (09:24)
[2021-06-21] MEDS: IPRATROPIUM-ALBUTEROL 3 ML NEB INHALATION SCH ×2 (09:24→11:53)
[2021-06-21 12:03] VITALS: PULSE 73
--- NOTE | 2021-06-21 16:24 | P.DS ---
Providers Date of admission: 06/18/21 15:27 Expected date of discharge: 06/21/21 Attending physician: Yuan Bautista Consults: 06/17/21 21:53 Consult Physician Routine Consulting Provider: Corinna Hunter Consult Reason/Comments: COPD exacerbation Do you want consulting provider notified?: Yes Primary care physician: [facility] Course: Chief Complaint: Short of breath This is a pleasant 71-year-old patient who follows with Dr. Cosby. Patient is long-standing smoker. About half a pack a day. Over 50 years. She noticed around [place] that is bleeding slightly getting worse. After the first of the year her symptoms became worse. She predominantly became more and more short of breath. Wheezing. Also developed a cough. Sometimes yellow sputum sometimes clear sputum. No fever no chills. Decreased appetite and rundown. Finding decided to come in. Patient does have inhalers at home. Admitted with COPD exacerbation, protein calorie malnutrition. June 19: Breathing a shade better. Remains on IV Solu-Medrol, DuoNeb, nebulizers. Oral intake good. Have the patient sit up in a chair. Increase activity. June 20: Breathing better. Oral intake fair. Patient is moved to different floor. [place] very tired in the process. He requested to stay overnight go home tomorrow. June 21: Doing better. Care was discussed with the patient in detail. Wasn't advised that she has advanced emphysema. advised against smoking. Prednisone taper. Short course of Omnicef. Discussion and discharge planning more than 35 minutes Consultation: Dr. Gomez from pulmonary Past medical history to include: COPD, GERD Social history: Lives alone. Has averaged about half a pack a day for over 50 years. No alcohol. Family history: Reviewed, noncontributory to presentation Physical examination: VITAL SIGNS: 98.6, 81, 18, 1:30/66, 94% on 2 L GENERAL: Up in bed, awake EYES: Pupils equal. Conjunctiva normal. HEENT: External appearance of nose and ears normal, oral cavity grossly normal. NECK: JVD not raised; masses not palpable. HEART: First and second heart sounds are normal; no edema. LUNGS: Respiratory rate increased; decreased breath sound, ABDOMEN: Soft, nontender, liver spleen not palpable, no masses palpable. PSYCH: Alert and oriented x3; mood and affect normal. MUSCULOSKELETAL:No Clubbing/cyanosis;muscles-grossly intact NEUROLOGICAL: Cranial nerves grossly intact; no facial asymmetry, power and sensation grossly intact. INVESTIGATIONS, reviewed in the clinical context: June 20: Procalcitonin less than 0.02 2-D echocardiogram: LV function EF 65/70% White count 11.3 hemoglobin 15.9 platelets 339 sodium 133 potassium 4.7 BUN 18 creatinine 0.65 Troponin I less than 0.012 proBNP 101 albumin 3.8 Coronavirus/influenza type A/influenza type B: Not detected EKG tracing personally reviewed by me-normal sinus rhythm. P pulmonale. Rate 66 Chest x-ray film personally reviewed by me-hyperinflated. Tubular heart. Flat diaphragms. No obvious infiltrate. Prominent pulmonary artery Assessment and plan: -Acute severe COPD exacerbation in a current smoker: Better Nebulized Pulmicort, nebulized Perforomist, DuoNeb 4 times a day, IV Solu-Medrol cutback Discharge on prednisone taper -Moderate protein calorie malnutrition. BMI 16.4 Ensure supplement. Consult dietitian -Chronic hypoxic respiratory failure on 2 L of oxygen at home from COPD Continue 2 L nasal cannula -Chronic nicotine dependence, cigarette smoker Nicotine patch 14 -Mild hyponatremia from decreased oral intake Encourage oral intake -GERD Pepcid 20 mg twice a day -Acute bronchitis Changed to by mouth Omnicef Disposition: Home Plan - Discharge Summary Discharge Rx Participant: Yes New Discharge Prescriptions: New Nicotine 14Mg/24Hr Patch [Habitrol] 1 patch TRANSDERM DAILY #14 patch predniSONE 10 mg PO DAILY #30 tab Cefdinir [Omnicef] 300 mg PO BID #6 cap Famotidine [Pepcid] 20 mg PO BID #60 tab Continue Budesonide/Formoterol Fumarate [Symbicort 160-4.5 Mcg Inhaler] 2 puff INHALATION RT-BID Albuterol Inhaler [Ventolin Hfa Inhaler] 2 puff INHALATION RT-Q6H PRN PRN Reason: Shortness Of Breath Albuterol Nebulized [Ventolin Nebulized] 2.5 mg INHALATION RT-QID PRN PRN Reason: Shortness Of Breath Cholecalciferol [Vitamin D3 (25 Mcg = 1000 Iu)] 25 mcg PO DAILY Montelukast [Singulair] 10 mg PO DAILY Changed Ipratropium Nebulized [Atrovent Nebulized 0.2 MG/ML] 0.5 mg INHALATION TID #90 ml Discontinued predniSONE [Deltasone] See Taper PO DIRECTED Amoxicillin/Potassium Clav [Augmentin 875-125 Tablet] 1 tab PO BID Discharge Medication List Albuterol Inhaler [Ventolin Hfa Inhaler] 2 puff INHALATION RT-Q6H PRN 06/17/21 [History] Albuterol Nebulized [Ventolin Nebulized] 2.5 mg INHALATION RT-QID PRN 06/17/21 [History] Budesonide/Formoterol Fumarate [Symbicort 160-4.5 Mcg Inhaler] 2 puff INHALATION RT-BID 06/17/21 [History] Cholecalciferol [Vitamin D3 (25 Mcg = 1000 Iu)] 25 mcg PO DAILY 06/17/21 [History] Montelukast [Singulair] 10 mg PO DAILY 06/17/21 [History] Cefdinir [Omnicef] 300 mg PO BID #6 cap 06/21/21 [Rx] Famotidine [Pepcid] 20 mg PO BID #60 tab 06/21/21 [Rx] Ipratropium Nebulized [Atrovent Nebulized 0.2 MG/ML] 0.5 mg INHALATION TID #90 ml 06/21/21 [Rx] Nicotine 14Mg/24Hr Patch [Habitrol] 1 patch TRANSDERM DAILY #14 patch 06/21/21 [Rx] predniSONE 10 mg PO DAILY #30 tab 06/21/21 [Rx] Follow up Appointment(s)/Referral(s): Corinna Hunter MD [STAFF PHYSICIAN] - 1 Week Benigno Cosby MD [Primary Care Provider] - 1-2 days Patient Instructions/Handouts: How to Stop Smoking (DC), COPD (Chronic Obstructive Pulmonary Disease) (DC) Discharge Disposition: HOME SELF-CARE
== END 2021-06-21 14:19 | disposition home or self-care (01) | DRG 190 ==
LOC: EC 17:41 → 1SOBS 21:49 → 6NMEDSUR 23:40 → 3NCARDOBS 06-18 02:59 → OBSVTOIN 06-18 15:27 → 4SSUR 06-20 16:21
PROVIDERS: ADMIT Hospitalist; ATTEND Hospitalist
DX: J43.9 Emphysema, unspecified (principal); J96.21 Acute and chronic respiratory failure with hypoxia; E44.0 Moderate protein-calorie malnutrition; Z68.1 Body mass index [BMI] 19.9 or less, adult; J45.901 Unspecified asthma with (acute) exacerbation; E87.1 Hypo-osmolality and hyponatremia; I27.20 Pulmonary hypertension, unspecified; Z20.822 Contact with and (suspected) exposure to COVID-19; J20.9 Acute bronchitis, unspecified; K21.9 Gastro-esophageal reflux disease without esophagitis; I07.1 Rheumatic tricuspid insufficiency; F17.210 Nicotine dependence, cigarettes, uncomplicated; Z71.6 Tobacco abuse counseling; Z99.81 Dependence on supplemental oxygen; Z79.51 Long term (current) use of inhaled steroids; Z79.899 Other long term (current) drug therapy; Z60.2 Problems related to living alone; Z71.3 Dietary counseling and surveillance; Z88.8 Allergy status to other drugs, medicaments and biological substances; Z88.1 Allergy status to other antibiotic agents; Z91.041 Radiographic dye allergy status
CPT/HCPCS: 36415; 71045; 80048; 80053; 83735; 83880; 84145; 84484; 85025; 87502; 87635; 93005; 93306; 94640; 94760; 99285